=== PATIENT | female | born 1985 | race Caucasian/White ===

== ENCOUNTER 2016-09-06 02:06 | Emergency (ER) | payer BC ==
[~2016-09-06] VITALS: Ht 170.2 cm; Wt 89.2 kg
[~2016-09-06 02:06] MED LIST: Amoxicillin PO; BUPROPION XL300 MG PO; Flexeril PO; GLUCOPHAGE500 MG PO; HYDROCODON-ACE1 EAC7 PO; NAPROXEN500 MG PO; NO HOME MEDS; NOHOMEMEDS; PARAFON FORTE500 MG PO; PREDNISONE20 MG PO; REMERON15 M2 PO; ROBITUSSIN AC,T10 ML PO; SYNTHROID175 MCG PO; [UNRECOGNIZED DRUG - OTHER] PO
[2016-09-06 02:38] LABS: HEMATOCRIT 34.9 % (36.0-46.0); MCH 28.5 PG (29.0-34.0); MCHC 32.1 G/DL (30.0-36.0); MCV 88.8 FL (83-99); MEAN PLAT.VOLUME 10.4 uM^3 (9.5-12.4); PLATELET COUNT 264 K/uL (156-360); RBC DIS.WIDTH-CV 12.6 % (11.8-14.6); RBC DIS.WIDTH-SD 41.3 % (39-53); RED BLOOD COUNT 3.93 M/uL (3.80-5.20)
[2016-09-06 02:50] LABS: CHLORIDE 109 mEq/L (99-109); POTASSIUM 3.2 mEq/L (3.7-5.4); SODIUM 142 mEq/L (136-147)
[2016-09-06 02:52] LABS: GLUCOSE 80 mg/dL (70-99)
[2016-09-06 02:53] LABS: ANION GAP 8 MEQ/L (2-14)
[2016-09-06 02:56] LABS: GFR ESTIMATE (CALCULATED) > 59 mL/min/
[2016-09-06 02:57] LABS: UREA NITROGEN (BUN) 18 mg/dL (9-23)
[2016-09-06 03:04] LABS: QUANTITATIVE HCG < 4.0 MIU/ML
[2016-09-06 03:20] LABS: ADD MIUA? YES; BILIRUBIN NEGATIVE; BLOOD NEGATIVE; COLOR YELLOW ((YELLOW)); GLUCOSE (STRIP) NEGATIVE; KETONES 5; LEUKOCYTES NEGATIVE; NITRITE NEGATIVE; PROTEIN (STRIP) 30; SPECIFIC GRAVITY 1.039 (1.000-1.030)
[2016-09-06 03:22] LABS: BACTERIA NONE SEEN /HPF; EPITHELIAL CELLS RARE /HPF; MUCUS TRACE /LPF; RED BLOOD CELLS 0-5 /HPF (0-5); UCUL ADDED? NO; WHITE BLOOD CELLS 0-5 /HPF (0-5)
[2016-09-06 05:10] VITALS: BP 113/69
== END 2016-09-06 05:11 | disposition home or self-care (01) ==
LOC: EME 02:06
PROVIDERS: Physician Assistant
DX: R55 Syncope and collapse (principal); S09.8XXA Other specified injuries of head, initial encounter; W18.39XA Other fall on same level, initial encounter; Z86.73 Personal history of transient ischemic attack (TIA), and cerebral infarction without residual deficits
CPT/HCPCS: 70450; 71020; 80048; 81003; 84702; 85027; 93005; 99281; 99284

== ENCOUNTER 2016-10-29 19:32 | Emergency (ER) | payer BC ==
[~2016-10-29] VITALS: Ht 170.2 cm; Wt 87.8 kg
[2016-10-29] MEDS ORDERED: TYLENOL WITH C1 EACH PO (22:13)
[2016-10-29 22:25] VITALS: BP 117/67
== END 2016-10-29 22:26 | disposition home or self-care (01) ==
LOC: EME 19:32
DX: S30.0XXA Contusion of lower back and pelvis, initial encounter (principal); W01.0XXA Fall on same level from slipping, tripping and stumbling without subsequent striking against object, initial encounter; Y92.002 Bathroom of unspecified non-institutional (private) residence as the place of occurrence of the external cause
CPT/HCPCS: 72131; 99281; 99283

== ENCOUNTER 2017-03-15 06:42 | Emergency (ER) | payer BC, OTHER ==
[~2017-03-15] VITALS: Ht 170.2 cm; Wt 85.6 kg
[~2017-03-15 06:42] MED LIST changes: +ATIVAN1 MG PO; +CARAFATE1 GM PO; +NORCO 5/3251 TABLET PO; +PROTONIX40 MG PO; +TYLENOL WITH C1 EACH PO; +ZANTAC150 MG PO
[2017-03-15 07:19] LABS: HEMATOCRIT 37.1 % (36.0-46.0); MCH 27.7 PG (29.0-34.0); MCHC 32.6 G/DL (30.0-36.0); MCV 84.9 FL (83-99); MEAN PLAT.VOLUME 10.2 uM^3 (9.5-12.4); PLATELET COUNT 259 K/uL (156-360); RBC DIS.WIDTH-CV 12.6 % (11.8-14.6); RBC DIS.WIDTH-SD 38.8 % (39-53); RED BLOOD COUNT 4.37 M/uL (3.80-5.20); WHITE BLOOD COUNT 5.1 K/uL (4.1-10.2)
[2017-03-15 07:50] LABS: ANION GAP 8 MEQ/L (2-14); CHLORIDE 105 MEQ/L (99-109); POTASSIUM 3.5 MEQ/L (3.7-5.4); SAMPLE HEMOLYSIS CHECK 0; SAMPLE ICTERIC CHECK 0; SAMPLE LIPEMIA CHECK 0; SODIUM 138 MEQ/L (136-147); TOTAL BILIRUBIN 0.5 MG/DL (0.0-1.0)
[2017-03-15 07:56] LABS: ALKALINE PHOSPHATASE 56 IU/L (3-129); GFR ESTIMATE (CALCULATED) > 59 mL/min/; GLUCOSE 98 mg/dL (70-99); UREA NITROGEN (BUN) 9 mg/dL (9-23)
[2017-03-15 08:00] LABS: QUANTITATIVE HCG < 4.0 MIU/ML
[2017-03-15] MEDS ORDERED: ZOFRAN ODT4 MG PO (09:15)
[2017-03-15] MEDS ORDERED: BENTYL10 MG PO (09:15)
[2017-03-15 09:40] VITALS: BP 108/61
== END 2017-03-15 09:49 | disposition home or self-care (01) ==
LOC: EME 06:42
DX: K52.9 Noninfective gastroenteritis and colitis, unspecified (principal); Z90.49 Acquired absence of other specified parts of digestive tract; M51.26 Other intervertebral disc displacement, lumbar region; Z98.84 Bariatric surgery status
CPT/HCPCS: 74177; 80053; 81003; 84702; 85027; 99281; 99284; J1885; J2405; J7030

== ENCOUNTER 2017-03-26 16:23 | Emergency (ER) | payer OTHER ==
[~2017-03-26] VITALS: Ht 170.2 cm; Wt 86.2 kg
[~2017-03-26 16:23] MED LIST changes: +BENTYL10 MG PO; +ZOFRAN ODT4 MG PO
[2017-03-26] MEDS ORDERED: ZOFRAN ODT4 MG PO (21:00)
[2017-03-26 21:08] VITALS: BP 109/63
== END 2017-03-26 21:09 | disposition home or self-care (01) ==
LOC: EME 16:23
DX: S40.011A Contusion of right shoulder, initial encounter (principal); S70.01XA Contusion of right hip, initial encounter; R51 Headache; W18.30XA Fall on same level, unspecified, initial encounter; E03.9 Hypothyroidism, unspecified; F41.9 Anxiety disorder, unspecified; F32.9 Major depressive disorder, single episode, unspecified
CPT/HCPCS: 70450; 99281; 99284

== ENCOUNTER → 2017-06-18 | Outpatient (CLI) | payer OTHER ==
[~2017-06-18] VITALS: Ht 170.2 cm; Wt 88.9 kg
[~2017-06-18] MED LIST changes: +GABAPENTIN300 MG PO; +MULTIVITAMIN1 EAC2 PO; +SYNTHROID125 MCG PO; -SYNTHROID175 MCG PO
== END | disposition home or self-care (01) ==
LOC: AMB 08:00
PROC: 0DJD8ZZ Inspection of Lower Intestinal Tract, Via Natural or Artificial Opening Endoscopic (ICD-10-PCS; principal; 2017-06-18)
DX: K64.8 Other hemorrhoids (principal); R10.13 Epigastric pain; K59.00 Constipation, unspecified; K62.5 Hemorrhage of anus and rectum; E03.9 Hypothyroidism, unspecified; I45.10 Unspecified right bundle-branch block
CPT/HCPCS: J2250

== ENCOUNTER 2017-07-10 11:06 | Emergency (ER) | payer OTHER ==
[~2017-07-10] VITALS: Ht 170.2 cm; Wt 90.6 kg
[2017-07-10 11:50] LABS: HEMATOCRIT 32.5 % (36.0-46.0); HEMOGLOBIN 10.6 G/DL (11.9-15.5); MCH 27.2 PG (29.0-34.0); MCHC 32.6 G/DL (30.0-36.0); MCV 83.3 FL (83-99); PLATELET COUNT 247 K/uL (156-360); RBC DIS.WIDTH-CV 13.2 % (11.8-14.6); RBC DIS.WIDTH-SD 40.2 % (39-53)
[2017-07-10 12:00] LABS: CHLORIDE 102 mEq/L (99-109); POTASSIUM 3.9 mEq/L (3.7-5.4); SODIUM 139 mEq/L (136-147)
[2017-07-10 12:01] LABS: GLUCOSE 76 mg/dL (70-99)
[2017-07-10 12:05] LABS: CREATININE 0.7 mg/dL (0.6-1.3); GFR ESTIMATE (CALCULATED) > 59 mL/min/
[2017-07-10 12:06] LABS: UREA NITROGEN (BUN) 14 mg/dL (9-23)
[2017-07-10 14:53] VITALS: BP 121/76
== END 2017-07-10 15:26 | disposition home or self-care (01) ==
LOC: EME 11:06
DX: E86.0 Dehydration (principal); R55 Syncope and collapse; R42 Dizziness and giddiness; M25.551 Pain in right hip; F41.9 Anxiety disorder, unspecified
CPT/HCPCS: 70450; 71046; 73502; 80048; 85027; 93005; 99281; 99285; J7030

== ENCOUNTER 2017-07-20 22:52 | Emergency (ER) | payer OTHER ==
[~2017-07-20] VITALS: Ht 170.2 cm; Wt 89.5 kg
[2017-07-21 00:48] VITALS: BP 132/76
== END 2017-07-21 00:49 | disposition home or self-care (01) ==
LOC: EME 22:52
DX: S90.32XA Contusion of left foot, initial encounter (principal); S93.602A Unspecified sprain of left foot, initial encounter; W23.0XXA Caught, crushed, jammed, or pinched between moving objects, initial encounter; Z88.5 Allergy status to narcotic agent; Z88.4 Allergy status to anesthetic agent
CPT/HCPCS: 73610; 73630; 99281; 99284

== ENCOUNTER 2017-09-24 00:43 | Emergency (ER) | payer OTHER ==
[~2017-09-24] VITALS: Ht 170.2 cm; Wt 89.1 kg
[2017-09-24 02:17] LABS: HEMATOCRIT 33.6 % (36.0-46.0); MCH 27.5 PG (29.0-34.0); MCHC 32.7 G/DL (30.0-36.0); PLATELET COUNT 257 K/uL (156-360); RBC DIS.WIDTH-CV 14.2 % (11.8-14.6); WHITE BLOOD COUNT 5.8 K/uL (4.1-10.2)
[2017-09-24 02:37] LABS: CHLORIDE 110 mEq/L (99-109); POTASSIUM 3.2 mEq/L (3.7-5.4); SODIUM 140 mEq/L (136-147)
[2017-09-24 02:39] LABS: GLUCOSE 117 mg/dL (70-99)
[2017-09-24 02:43] LABS: CREATININE 0.8 mg/dL (0.6-1.3); GFR ESTIMATE (CALCULATED) > 59 mL/min/
[2017-09-24 02:44] LABS: UREA NITROGEN (BUN) 10 mg/dL (9-23)
[2017-09-24 02:55] LABS: QUANTITATIVE HCG < 4.0 MIU/ML
[2017-09-24] MEDS ORDERED: FLEXERIL10 MG PO (03:27)
[2017-09-24] MEDS ORDERED: LIDODERM 5% P1 PATCH TD (03:27)
[2017-09-24 03:59] VITALS: BP 103/52
== END 2017-09-24 04:00 | disposition home or self-care (01) ==
LOC: EME 00:43
PROVIDERS: Emergency Medicine
DX: S40.011A Contusion of right shoulder, initial encounter (principal); S20.211A Contusion of right front wall of thorax, initial encounter; W20.8XXA Other cause of strike by thrown, projected or falling object, initial encounter; E03.9 Hypothyroidism, unspecified; F32.9 Major depressive disorder, single episode, unspecified; Z90.49 Acquired absence of other specified parts of digestive tract; Z95.9 Presence of cardiac and vascular implant and graft, unspecified; Z98.84 Bariatric surgery status; Z88.4 Allergy status to anesthetic agent; Z88.5 Allergy status to narcotic agent; Z88.8 Allergy status to other drugs, medicaments and biological substances
CPT/HCPCS: 71046; 73030; 80048; 84702; 85027; 99281; 99284